=== PATIENT | male | born 1965 | race African-American/Black ===

== ENCOUNTER 2016-12-07 14:59 | Emergency (ER) | payer BC ==
[~2016-12-07] VITALS: Ht 177.8 cm; Wt 82.0 kg
[~2016-12-07 14:59] MED LIST: Z.0.NO CURRENT MEDS
[2016-12-07 15:04] VITALS: BP 183/100; PULSE 71; RESP 16; TEMP 98.1; O2SAT 98
[2016-12-07] MEDS ORDERED: LISINOPRIL 20 MG TAB PO ONE (15:45)
--- NOTE | 2016-12-07 15:46 | PD ---
HPI Chief Complaint: Hypertension Time Seen by Provider: 15:36 Travel History International Travel<30 days: No Contact w/Intl Traveler<30days: No Traveled to known affect area: No History of Present Illness HPI 51-year-old male with history of hypertension, high cholesterol and seasonal allergies. He presents for evaluation. 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 Symptoms only lasted for a few minutes and then completely resolved. He had no associated symptoms such as headache, blurred vision, nausea or vomiting, chest pain or shortness of breath, focal weakness or numbness or tingling. He reports that his checked his blood pressure at home and it was in the systolic range of 160 and so he presented here for evaluation. His primary concern at this time is that his blood pressure was elevated. He reports that he is supposed to be taking lisinopril 20 mg once a day but he has not taken it in 2 days. Currently he feels normal. He has had no new symptoms. His primary care physician is Dr. Stein. COUNT INCLUDES THE [facility] Past Medical History Cardiovascular Problems: Yes (HTN) High Cholesterol: Yes (TAKES NO MEDS) Social History Alcohol Use: No Tobacco Use: No Substance Use: No Allergies-Medications (Allergen,Severity, Reaction): Coded Allergies: No Known Allergies (Verified , 01/01/13) Reported Meds & Prescriptions Reported Meds & Active Scripts Active Reported Lisinopril 10 Mg Tab 10 Mg PO DAILY Review of Systems Except as stated in HPI: all other systems reviewed are Neg Physical Exam Narrative GENERAL: Well-developed well-nourished male in no acute distress SKIN: Warm and dry. HEAD: Atraumatic. Normocephalic. EYES: Pupils equal and round. No scleral icterus. No injection or drainage. ENT: No nasal bleeding or discharge. Mucous membranes pink and moist. NECK: Trachea midline. No JVD. CARDIOVASCULAR: Regular rate and rhythm. No murmur appreciated. RESPIRATORY: No accessory muscle use. Clear to auscultation. Breath sounds equal bilaterally. GASTROINTESTINAL: Abdomen soft, non-tender, nondistended. Hepatic and splenic margins not palpable. MUSCULOSKELETAL: No obvious deformities. No clubbing. No cyanosis. No edema. NEUROLOGICAL: Awake and alert. No obvious cranial nerve deficits. Motor grossly within normal limits. Normal speech. Normal muscle strength Data Data Last Documented VS Vital Signs Date Time Temp Pulse Resp B/P Pulse Ox O2 Delivery O2 Flow Rate FiO2 12/07/16 17:34 98.0 62 17 143/78 99 Room Air Orders Electrocardiogram (12/07/16 15:42) Complete Blood Count With Diff (12/07/16 15:42) Comprehensive Metabolic Panel (12/07/16 15:42) Magnesium (Mg) (12/07/16 15:42) Lisinopril (Prinivil) (12/07/16 15:45) Clonidine (Catapres) (12/07/16 17:00) Labs Laboratory Tests Test 12/07/16 16:10 White Blood Count 9.1 TH/MM3 Red Blood Count 4.59 MIL/MM3 Hemoglobin 14.0 GM/DL Hematocrit 40.6 % Mean Corpuscular Volume 88.4 FL Mean Corpuscular Hemoglobin 30.5 PG Mean Corpuscular Hemoglobin 34.5 % Concent Red Cell Distribution Width 13.1 % Platelet Count 209 TH/MM3 Mean Platelet Volume 8.7 FL Neutrophils (%) (Auto) 66.6 % Lymphocytes (%) (Auto) 22.1 % Monocytes (%) (Auto) 8.3 % Eosinophils (%) (Auto) 2.5 % Basophils (%) (Auto) 0.5 % Neutrophils # (Auto) 6.0 TH/MM3 Lymphocytes # (Auto) 2.0 TH/MM3 Monocytes # (Auto) 0.8 TH/MM3 Eosinophils # (Auto) 0.2 TH/MM3 Basophils # (Auto) 0.0 TH/MM3 CBC Comment DIFF FINAL Differential Comment Sodium Level 140 MEQ/L Potassium Level 4.1 MEQ/L Chloride Level 106 MEQ/L Carbon Dioxide Level 28.5 MEQ/L Anion Gap 6 MEQ/L Blood Urea Nitrogen 16 MG/DL Creatinine 1.18 MG/DL Estimat Glomerular Filtration 79 ML/MIN Rate Random Glucose 88 MG/DL Calcium Level 8.4 MG/DL Magnesium Level 2.0 MG/DL Total Bilirubin 0.5 MG/DL Aspartate Amino Transf 17 U/L (AST/SGOT) Alanine Aminotransferase 30 U/L (ALT/SGPT) Alkaline Phosphatase 104 U/L Total Protein 7.8 GM/DL Albumin 3.6 GM/DL MDM Medical Decision Making Medical Screen Exam Complete: Yes Emergency Medical Condition: Yes Medical Record Reviewed: Yes Differential Diagnosis Peripheral vertigo, central vertigo, dehydration, electrolyte abnormality, arrhythmia, hypertensive urgency Narrative Course 51-year-old male presents after having an episode at work in which he felt that the forklift was moving however it was not. He describes it as lightheadedness. Symptoms lasted for a few minutes and then resolved. His primary concern though was that his blood pressure was elevated at home and the systolic 160 range and here it is in the systolic 180 range. He admits that he is not very compliant with his lisinopril prescription and he has not taken it in 2 days. Physical examination is reassuring. He has normal neurological examination. Plan is to check basic lab work, EKG. He will be given his daily dose of lisinopril. He will be monitored closely. Tyrone Leroy Dec 07, 2016 15:46
[2016-12-07] MEDS ORDERED: LISI10TA3 PO (16:14)
[2016-12-07 16:29] LABS: BASOPHIL % 0.5 % (0.0-2.0); EOSINOPHIL # 0.2 TH/MM3 (0-0.4); EOSINOPHIL % 2.5 % (0.0-4.0); HEMATOCRIT 40.6 % (39.0-51.0); HEMO FLAGS DIFF FINAL; LYMPH % 22.1 % (9.0-44.0); MEAN CELL VOLUME 88.4 FL (80.0-100.0); MEAN CORPUSCULAR HEMOGLOBIN 30.5 PG (27.0-34.0); MEAN CORPUSCULAR HGB CONC 34.5 % (32.0-36.0); MONO % 8.3 % (0.0-8.0); NEUT % 66.6 % (16.0-70.0); PLATELET COUNT 209 TH/MM3 (150-450); RED BLOOD COUNT 4.59 MIL/MM3 (4.50-5.90); RED CELL DISTRIBUTION WIDTH 13.1 % (11.6-17.2); WHITE BLOOD COUNT 9.1 TH/MM3 (4.0-11.0)
[2016-12-07 16:48] LABS: ANION GAP 6 MEQ/L (5-15); AST (GOT) 17 U/L (15-37); BICARBONATE 28.5 MEQ/L (21.0-32.0); BLOOD UREA NITROGEN 16 MG/DL (7-18); CHLORIDE 106 MEQ/L (98-107); GLOMERULAR FILTRATION RATE 79 ML/MIN (>89); POTASSIUM 4.1 MEQ/L (3.5-5.1); SODIUM (NA) 140 MEQ/L (136-145)
[2016-12-07 16:52] LABS: ALKALINE PHOSPHATASE 104 U/L (45-117); ALT (GPT) 30 U/L (12-78); TOTAL BILIRUBIN ADULT 0.5 MG/DL (0.2-1.0)
[2016-12-07] MEDS ORDERED: cloNIDine HCL 0.1 MG TAB PO ONE (17:00)
[2016-12-07 17:06] VITALS: BP 175/89; PULSE 62; RESP 17; TEMP 98; O2SAT 98
[2016-12-07 17:34] VITALS: BP 143/78; PULSE 62; RESP 17; TEMP 98; O2SAT 99
--- NOTE | 2016-12-07 17:34 | PD ---
HPI Chief Complaint: Hypertension Time Seen by Provider: 16:11 Travel History International Travel<30 days: No Contact w/Intl Traveler<30days: No Traveled to known affect area: No History of Present Illness HPI 51-year-old male came to the emergency room with history of dizziness. 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 He came home and checked his blood pressure. It was 167/90 which is very high for him as per the patient. He has history of hypertension and did not take his medications for 2-3 days since he ran out of prescription. He called his primary care who asked them to come to the emergency room. His is here with him. Patient says the dizziness feels better. He has some headache. No history of chest pain. Patient was seen by the provider in triage and workup was initiated. He was also given one of his daily lisinopril 25 milligrams by mouth. By the time it gone to see him he had received it for over half an hour and his blood pressure was 201/115. [facility] Past Medical History Narrative Medical List of her past medical, surgical, social and family history was reviewed from the nursing note. Cardiovascular Problems: Yes (HTN) High Cholesterol: Yes (TAKES NO MEDS) Hypertension: Yes Tetanus Vaccination: < 5 Years Influenza Vaccination: Yes Past Surgical History Surgical History: No Previous Surgery Social History Alcohol Use: No Tobacco Use: No Substance Use: No Allergies-Medications (Allergen,Severity, Reaction): Coded Allergies: No Known Allergies (Verified , 01/01/13) Comments No known allergies. Reported Meds & Prescriptions Reported Meds & Active Scripts Active Lisinopril 20 Mg Tab 20 Mg PO DAILY Reported Lisinopril 10 Mg Tab 10 Mg PO DAILY Narrative Medication List of his home medications reviewed from the nursing note. Review of Systems Except as stated in HPI: all other systems reviewed are Neg Physical Exam Narrative GENERAL: Awake, alert, no obvious distress SKIN: Warm and dry. HEAD: Atraumatic. Normocephalic. EYES: Pupils equal and round. No scleral icterus. No injection or drainage. ENT: No nasal bleeding or discharge. Mucous membranes pink and moist. NECK: Trachea midline. No JVD. CARDIOVASCULAR: Regular rate and rhythm. No murmur appreciated. RESPIRATORY: No accessory muscle use. Clear to auscultation. Breath sounds equal bilaterally. GASTROINTESTINAL: Abdomen soft, non-tender, nondistended. Hepatic and splenic margins not palpable. MUSCULOSKELETAL: No obvious deformities. No clubbing. No cyanosis. No edema. NEUROLOGICAL: Awake and alert. No obvious cranial nerve deficits. Motor grossly within normal limits. Normal speech. PSYCHIATRIC: Appropriate mood and affect; insight and judgment normal. Data Data Last Documented VS Vital Signs Date Time Temp Pulse Resp B/P Pulse Ox O2 Delivery O2 Flow Rate FiO2 12/07/16 18:00 97.8 78 17 148/81 99 12/07/16 17:34 Room Air Orders Electrocardiogram (12/07/16 15:42) Complete Blood Count With Diff (12/07/16 15:42) Comprehensive Metabolic Panel (12/07/16 15:42) Magnesium (Mg) (12/07/16 15:42) Lisinopril (Prinivil) (12/07/16 15:45) Clonidine (Catapres) (12/07/16 17:00) Labs Laboratory Tests Test 12/07/16 16:10 White Blood Count 9.1 TH/MM3 Red Blood Count 4.59 MIL/MM3 Hemoglobin 14.0 GM/DL Hematocrit 40.6 % Mean Corpuscular Volume 88.4 FL Mean Corpuscular Hemoglobin 30.5 PG Mean Corpuscular Hemoglobin 34.5 % Concent Red Cell Distribution Width 13.1 % Platelet Count 209 TH/MM3 Mean Platelet Volume 8.7 FL Neutrophils (%) (Auto) 66.6 % Lymphocytes (%) (Auto) 22.1 % Monocytes (%) (Auto) 8.3 % Eosinophils (%) (Auto) 2.5 % Basophils (%) (Auto) 0.5 % Neutrophils # (Auto) 6.0 TH/MM3 Lymphocytes # (Auto) 2.0 TH/MM3 Monocytes # (Auto) 0.8 TH/MM3 Eosinophils # (Auto) 0.2 TH/MM3 Basophils # (Auto) 0.0 TH/MM3 CBC Comment DIFF FINAL Differential Comment Sodium Level 140 MEQ/L Potassium Level 4.1 MEQ/L Chloride Level 106 MEQ/L Carbon Dioxide Level 28.5 MEQ/L Anion Gap 6 MEQ/L Blood Urea Nitrogen 16 MG/DL Creatinine 1.18 MG/DL Estimat Glomerular Filtration 79 ML/MIN Rate Random Glucose 88 MG/DL Calcium Level 8.4 MG/DL Magnesium Level 2.0 MG/DL Total Bilirubin 0.5 MG/DL Aspartate Amino Transf 17 U/L (AST/SGOT) Alanine Aminotransferase 30 U/L (ALT/SGPT) Alkaline Phosphatase 104 U/L Total Protein 7.8 GM/DL Albumin 3.6 GM/DL MDM Medical Decision Making Medical Screen Exam Complete: Yes Emergency Medical Condition: Yes Medical Record Reviewed: Yes Interpretation(s) Twelve-lead EKG was reviewed by me. Normal sinus rhythm, normal axis, LVH, nonspecific ST-T wave changes. Heart rate of 60 bpm. Differential Diagnosis Essential hypertension, noncompliance with medications Narrative Course 5:33 PM I gave in addition by mouth clonidine 0.1 mg. I have expressed to him the importance of being compliant with blood pressure medications. He understands. He'll follow up with his primary care. 5:45 PM repeat blood pressure was 145/75. I will discharge him home. Procedures EKG Prior to Arrival: Yes Diagnosis Primary Impression: Hypertension Qualified Code: I15.9 - Secondary hypertension Additional Impression: Poor compliance with medication Referrals: Primary Care Physician Departure Forms: Tests/Procedures, Work Release Enter return to work date: Dec 09, 2016 Additional Instructions: Please take your medications as per the prescription directions. Follow-up with your primary care in couple days. Med/Other Pt SpecificInfo: Prescription(s) given Scripts Lisinopril 20 Mg Tab20 Mg PO DAILY #30 TAB Ref 0 Prov:Kalpesh Pulliam MD 12/07/16 Disposition: 01 DISCHARGE HOME Condition: Stable Kalpesh Pulliam MD Dec 07, 2016 17:34
[2016-12-07] MEDS ORDERED: LISI-515 PO (17:47)
[2016-12-07 18:00] VITALS: BP 148/81; TEMP 97.8
--- NOTE | 2016-12-14 14:46 | EKG ---
Date Performed: 12/07/2016 Time Performed: 16:05:51 PTAGE: 51 years EKG: Sinus rhythm POSSIBLE LEFT VENTRICULAR HYPERTROPHY NONSPECIFIC T-WAVE ABNORMALITY ABNORMAL ECG Compared to prior tracing no significant change PREVIOUS TRACING : 04/21/2001 10.51 DOCTOR: Perry Schmid Interpretating Date/Time 12/14/2016 14:45:49
== END 2016-12-07 18:02 | disposition home or self-care (01) ==
LOC: NEPA 14:59
DX: I10 Essential (primary) hypertension (principal); R42 Dizziness and giddiness; R51 Headache; Z79.899 Other long term (current) drug therapy; Z91.14 Patient's other noncompliance with medication regimen
CPT/HCPCS: 80053; 83735; 85025; 93005